=== PATIENT | male | born 1965 | race Caucasian/White ===

== ENCOUNTER 2020-05-08 13:20 | Emergency (ER) | payer OTHER ==
[2020-05-08 13:28] VITALS: BP 125/83; PULSE 90; TEMP 98.4; BMI 27.1
[2020-05-08 13:56] LABS: BASO % 2.6 % (0-2.0); EOS % 0.4 % (0-4.5); HEMATOCRIT 44.3 % (35.4-49); LYMPH % 19.4 % (8-40); MCH 30.8 pg (25.7-33.7); MCHC 33.8 g/dl (32.0-35.9); MEAN CELL VOLUME 91.3 fl (80-96); MONO % 7.1 % (3.8-10.2); NEUT % 70.5 % (42.8-82.8); PLATELET COUNT 287 K/MM3 (134-434); RBC 4.85 M/mm3 (4.00-5.60); RDW 12.3 % (11.9-15.9); WHITE BLOOD COUNT 8.2 K/mm3 (4.0-10.8)
[2020-05-08 14:07] LABS: ALBUMIN 4.4 g/dl (3.4-5.0); BILIRUBIN,TOTAL 0.6 mg/dl (0.2-1); CALCIUM 8.9 mg/dl (8.5-10); CREATININE 0.8 mg/dl (0.55-1.3); POTASSIUM 3.8 mmol/L (3.5-5.1); TOT PROT 7.7 g/dl (6.4-8.2)
== END 2020-05-08 15:35 | disposition home or self-care (01) ==
LOC: FER 13:20
DX: R10.9 Unspecified abdominal pain (principal)
CPT/HCPCS: 36415; 71046-TC-FY; 74177-TC; 80053; 81003; 83690; 85025; 87086; 93005; 99285-25